=== PATIENT | female | born 1960 | race Caucasian/White ===

== ENCOUNTER 2017-11-21 12:35 | Emergency (ER) | payer OTHER ==
[~2017-11-21] VITALS: Ht 165.1 cm; Wt 79.8 kg
[2017-11-21 12:43] VITALS: BP 117/81
--- NOTE | 2017-11-21 12:45 | NUR ---
57 Y/O F W/C/O HEADACHE TO PARIETAL REGION WITH NAUSEA AND MILD WEAKNESS X1 WEEK. PT STATES SHE HAS 7/10 PAIN AND IT FEELS, "SORE." PT DENIES TAKING ANYTHING [employer]ILDER WINDER. NO FACIAL/SMILE ASYMMETRY NOTED. STEADY GAIT. EQUAL RIGHT OF WAY CUTTER BILATERAL ARMS AND BILATERAL EQUAL PUSH/PULL TO BILATER LEGS. PMH: HTN ALLGERGIES: PENICILLINS, PSEUDOEPHEDRINE
[2017-11-21 15:18] VITALS: BP 126/89
--- NOTE | 2017-11-21 15:19 | NUR ---
Patient discharged with v/s stable. Written and verbal after care instructions given and explained. Patient alert, oriented and verbalized understanding of instructions. Ambulatory with steady gait. All questions addressed prior to discharge. ID band removed. Patient advised to follow up with PMD. Rx of NAPROSYN 375 MG, ATENOLOL 25MG, CLARITIN given. Patient educated on indication of medication including possible reaction and side effects. Opportunity to ask questions provided and answered.
== END 2017-11-21 15:19 | disposition home or self-care (01) ==
LOC: MED 12:35
DX: J32.9 Chronic sinusitis, unspecified (principal); I10 Essential (primary) hypertension; Z76.0 Encounter for issue of repeat prescription; Z88.0 Allergy status to penicillin; Z88.8 Allergy status to other drugs, medicaments and biological substances
CPT/HCPCS: 70450; 81025; 99284